=== PATIENT | female | born 1990 | race Caucasian/White ===

== ENCOUNTER 2016-12-27 19:27 | Inpatient (IN) ==
[2016-12-27] MEDS ORDERED: AMMONIA AROMATIC ONE (19:52)
[2016-12-27 20:30] LABS: MANUAL DIFF NEEDED? NO; URINE MICRO REVIEW NEEDED? NO; URINE SOURCE CLEAN CATCH
--- NOTE | 2016-12-27 20:31 | Diag Imaging Result Doc PS360 ---
EXAM: HEAD W/O CONTRAST HISTORY: AMS, hx of pseudoseizures TECHNIQUE: CT of the head without intravenous contrast and reduced dose (clarity.) COMMENT: There is no evidence of bleed, mass effect, or abnormal extra-axial fluid collection. Compared to the previous study of 03/19/2016 there is been no significant change in the appearance of the brain. IMPRESSION: No evidence of acute intracranial disease. Electronically signed by Shiv Mart 12/27/2016 8:29 PM
[2016-12-27 20:35] LABS: BASO% 0.4 % (0.0-0.8); EOS# 0.07 X1000 (0.0-0.7); EOS% 0.7 % (0.0-10.0); HEMATOCRIT 36.3 % (37.0-47.0); HEMOGLOBIN 12.1 g/dL (12.0-16.0); IMM GRAN# 0.16 X1000 (0.0-0.04); IMM GRAN% 1.5 % (0.0-0.5); LYMPH# 2.61 X1000 (1.2-3.4); LYMPH% 24.8 % (20.5-51.1); MCHC 33.3 g/dL (33-37); MCV 89.9 FL (81-99); MONO# 1.03 X1000 (0.11-0.59); MONO% 9.8 % (1.7-9.3); MPV 9.6 FL (7.4-10.4); NEUT% 62.8 % (42.2-75.2); PLT 256 X1000 (130-400); RBC 4.04 XMIL (4.2-5.4)
[2016-12-27 20:37] LABS: BILIRUBIN URINE NEGATIVE (NEGATIVE); BLOOD URINE NEGATIVE (NEGATIVE); COLOR YELLOW; GLUCOSE URINE TRACE mg/dL (NEGATIVE); LEUKOCYTES URINE TRACE (NEGATIVE); NITRITE URINE NEGATIVE (NEGATIVE); PROTEIN URINE NEGATIVE (NEGATIVE); SP GRAVITY URINE 1.021; TURBIDITY URINE CLEAR (CLEAR); UR EPITHELIAL CELLS <10 /HPF (<10); URINE BACTERIA 1+ /HPF; URINE CULTURE NEEDED? YES; URINE RBC <10 /HPF (<10); URINE WBC <10 /HPF (<10); UROBILINOGEN URINE NORMAL (NORMAL)
[2016-12-27 20:46] LABS: UR AMPHETAMINES QUAL NONE DETECTED (NONE DETECT); UR BARBITUATES QUAL NONE DETECTED (NONE DETECT); UR BENZODIAZEPIN QUAL NONE DETECTED (NONE DETECT); UR CANNABINOIDS QUAL NONE DETECTED (NONE DETECT); UR COCAINE QUAL NONE DETECTED (NONE DETECT); UR METHADONE QUAL NONE DETECTED (NONE DETECT); UR OPIATES QUAL NONE DETECTED (NONE DETECT); UR OXYCODONE QUAL NONE DETECTED (NONE DETECT); UR PCP QUAL NONE DETECTED (NONE DETECT)
[2016-12-27 21:12] LABS: AGAP 14; ALKALINE PHOSPHATASE 102 U/L (32-104); BUN 17 mg/dL (8-22); CALCIUM 8.9 mg/dL (8.8-10.2); CHLORIDE 99 mmol/L (98-107); COSMO 276; GOT 15 U/L (10-30); GPT 16 U/L (10-36); POTASSIUM 3.6 mmol/L (3.5-5.1); SODIUM 138 mmol/L (136-145); TCO2 25 mmol/L (25-35); TOTAL BILIRUBIN 0.11 mg/dL (0.20-1.00); TOTAL PROTEIN 7.4 g/dL (6.3-8.3)
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
[2016-12-28] MEDS ORDERED: NS 1,000 ML IV ONE (00:28)
[2016-12-28] MEDS ORDERED: NS 1,000 ML ONE (00:42)
[2016-12-28] MEDS: DEPAKOTE PO SCH ×3 (01:16→22:20)
--- NOTE | 2016-12-28 06:42 | HISTORY AND PHYSICAL ---
CHIEF COMPLAINT: Syncope, dizziness. HISTORY OF PRESENT ILLNESS: This is a 26-year-old female with multiple medical problems for her young age including dysautonomia, diabetes, hypothyroidism. She comes in with recurrent dizziness. According to her /significant other, she has been having frequent episodes of just dizziness and nearly passing out. Reportedly, has been unresponsive. No seizure activity, although she has a history of seizures for which she takes Depakote. She has noticed that the symptoms have been worse since she has been placed on trazodone and Zyprexa for her severe depression. I think she lost a family member. She was at [facility] and then was sent to [place] for inpatient psychiatric treatment and at that point, she had been on Effexor and Depakote, which again is reportedly for seizures and she has been placed on trazodone and Zyprexa, although I do not have the doses. Her fiance reports that she gets completely unresponsive. Again, no seizure activity, but she has episodes were she is unresponsive for 5-10 minutes. She has never fallen out, like fallen face down, but she has had issues with that. That is why she has been put in the hospital. Her workup here really is unremarkable, vital signs and laboratory data. She is a little tachycardic, really not that impressive. Depakote level is therapeutic. PAST MEDICAL HISTORY: 1. Again hypertension, also with orthostasis though. 2. Seizure disorder. 3. Hypothyroidism. 4. Diabetes for which she has recently been placed on metformin. PAST SURGICAL HISTORY: Denies. FAMILY HISTORY: Reviewed and noncontributory. SOCIAL HISTORY: No tobacco or ethanol. ALLERGIES: IV contrast, labetalol. She has numerous allergies. Nadolol, pertussis vaccine, prochlorperazine, amoxicillin, cyclobenzaprine, phenytoin, hydrocortisone, latex and sulfa. MEDICATIONS: She is on vitamin D3 1000 units daily, Depakote 500 b.i.d., Synthroid 150 daily, Glucophage 100 b.i.d. ,Effexor 75 daily and then trazodone and Zyprexa at unknown dose. REVIEW OF SYSTEMS: She does report weight loss and anorexia. Pulmonary: No chest pains or shortness of breath. Occasional palpitations. No cough. GI: Nausea. No vomiting, diarrhea or constipation. : No dysuria or hematuria. PHYSICAL EXAMINATION: VITAL SIGNS: Blood pressure is 122/80, heart rate 100, respiratory 19, temp 98.7 degrees, 95% on room air. GENERAL: A well-developed female, in no acute distress. HEENT: Pupils equal, round, reactive to light. Extraocular movements were intact. Moist mucous membranes. NECK: Supple. CARDIOVASCULAR: Regular rate and rhythm. No murmurs, gallops, or rubs. PULMONARY: Exam bilateral breath sounds. Clear to auscultation. GI: Soft, nontender, nondistended. Bowel sounds were positive. EXTREMITIES: No clubbing or cyanosis. LYMPHATICS: No peripheral edema. NEUROLOGICAL: Nonfocal. LABORATORY/DIAGNOSTIC DATA: Normal CBC. Normal CMP. UA unremarkable. UDS unremarkable. Head CT was negative. I do not have an EKG. It was done. I cannot tell if it was completed. ASSESSMENT: A 26-year-old female with presyncope, likely related to medications. 1. Presyncope, dizziness. We will continue hydration. Check orthostasis. Certainly could be related to trazodone especially. She reports pseudoseizure activity but no candy seizure activity. Plan is to observe and see how she is doing. I am going to hold obviously the trazodone and Zyprexa. Those medications have not been resolved. 2. Diabetes. Again, apparently sugars remain 90-120. No sugars here have been elevated. I am going to check an A1c. Hold her metformin and follow. 3. Seizure disorder. Continue Depakote. Appears to be therapeutic. We will continue to monitor. 4. Disposition. Likely home within next 24 hours if stable. I probably will go ahead and pursue echo just to make sure that there has not been anything else and repeat her cardiac enzymes. cc: Shen Cox MD
[2016-12-28 07:08] LABS: HEMOGLOBIN A1C 5.4 % (4.8-6.0)
[2016-12-28] MEDS: ATIVAN IV PRN ×3 (08:37→22:00)
[2016-12-28] MEDS ORDERED: DEPAKOTE PO SCH (09:00)
[2016-12-28] MEDS ORDERED: SYNTHROID PO SCH (09:00)
[2016-12-28] MEDS: EFFEXOR PO SCH (10:49)
[2016-12-28] MEDS: VITAMIN D PO SCH (10:49)
[2016-12-28] MEDS: HUMULIN R SUBQ SCH ×3 (11:39→22:07)
[2016-12-28] MEDS: NS 1,000 ML IV SCH (11:57)
[2016-12-28 13:01] LABS: URINE CULTURE NEEDED? NO; URINE MICRO REVIEW NEEDED? NO; URINE SOURCE CATH
[2016-12-28 13:06] LABS: BILIRUBIN URINE NEGATIVE (NEGATIVE); BLOOD URINE NEGATIVE (NEGATIVE); COLOR STRAW; GLUCOSE URINE NEGATIVE (NEGATIVE); LEUKOCYTES URINE NEGATIVE (NEGATIVE); NITRITE URINE NEGATIVE (NEGATIVE); PH URINE 7.5; PROTEIN URINE NEGATIVE (NEGATIVE); SP GRAVITY URINE 1.006; TURBIDITY URINE CLEAR (CLEAR); UROBILINOGEN URINE NORMAL (NORMAL)
[2016-12-28 13:07] LABS: UR EPITHELIAL CELLS <10 /HPF (<10); URINE BACTERIA NEGATIVE /HPF; URINE RBC <10 /HPF (<10); URINE WBC <10 /HPF (<10)
--- NOTE | 2016-12-28 13:41 | ECHO REPORT ---
ORDER DATE: 12/28/2016 ECHOCARDIOGRAPHIC MEASUREMENTS: 1. Interventricular septum 1.0. Left ventricular posterior wall 0.9. Diastolic diameter 3.1. Left atrium 3.5. Aorta 2.6. 2. Normal left ventricular cavity size. Estimated ejection fraction of 65%. Aortic valve leaflets were trileaflet. Mitral valve was normal. Tricuspid valve was normal. Pulmonic valve was normal. There is trace mitral regurgitation. Trace tricuspid regurgitation. Peak velocity across the aortic valve less than 2 m/sec. By Doppler studies there is no aortic stenosis or regurgitation. 3. Technically suboptimal study. Poor apical windows. 4. There is no pericardial effusion or obvious intracardiac mass or thrombus seen. cc: MD Shen Saucedo MD
--- NOTE | 2016-12-28 14:17 | PROGRESS NOTE ---
DATE: 12/28/2016 SUBJECTIVE: This patient states that she is feeling a little bit better but weak. She is not complaining of nausea, vomiting. In the hospital she has not had any kind of seizure disorder, or pseudoseizure. She has a strong past medical history of depression, anxiety, PTSD, also history of seizure disorder, diabetes, hypothyroidism and dysautonomy. Apparently she blacked out multiple times yesterday so they decided to bring this patient here. On my physical exam, she has right lower quadrant pain. We will ask for a CT scan of the abdomen to rule out appendicitis. OBJECTIVE: Vital Signs: Temperature 97.7 degrees, pulse 77, respiratory rate 17, blood pressure 114/68, oxygen saturation 98 on room air. HEENT: Head normocephalic. No trauma. PERRLA. Neck: Supple. No JVD. No masses. Central trachea. Chest: Clear to auscultation. No wheezing. No rales. Abdomen: Soft, tender to palpation at the level of the right lower quadrant, probably she has rebound. Extremities: No edema. No clubbing. No cyanosis. Neurological: The patient is alert, oriented x3. No focal neurological deficits. LABORATORY: Glucose 87, hemoglobin A1c 5.4. CK 71, troponin less than 0.010. ASSESSMENT AND PLAN: 1. Syncopal episode in a patient with history of seizures and multiple psychiatry disorders. She has been taking medicines for PTSD, depression and anxiety. The trazodone and Zyprexa has been stopped. We will continue to monitor. 2. Abdominal pain. I will ask for a CT scan of the abdomen to rule out appendicitis and put this patient NPO and also fluids. 3. Diabetes. Hemoglobin A1c is. 5.4. For now, we will continue with the same management. As per the patient every time that she had the blood sugar below 110 she feels bad and she starts having seizures. Probably I will keep this patient to rule out any other condition and for Neurology evaluation. Overall, this patient looks stable but she is complaining of right lower quadrant pain. I will get a CT scan to rule out appendicitis and probably I will keep this patient until Friday to see if we can consult Neurology Department. Probably she will need an EEG done. cc: Juan Cortez MD
--- NOTE | 2016-12-28 14:52 | Diag Imaging Result Doc PS360 ---
EXAM: CT ABD/PELVIS W/ IV CONT ONLY HISTORY: R/O appendicitis TECHNIQUE: CT of the abdomen with intravenous contrast and dose reduction (clarity.) COMMENT: There is subsegmental atelectasis in the lung bases particularly the left lower lobe. There is been cholecystectomy. Some prominence of the biliary tree is present. There is no definite evidence of stones. The pancreas adrenal glands and spleen are within normal limits. The kidneys are without evidence of hydronephrosis or mass. CT of the pelvis with intravenous Contrast: The appendix is normal in appearance. There is some stool in the rectum. There is a Wolf catheter in the bladder. There are bilateral subcentimeter ovarian follicles. No free fluid is present. The regional skeleton is intact. There is no evidence of bowel obstruction. Moderate amount of stool is present in the rectosigmoid colon. IMPRESSION: Constipation. No evidence of appendicitis. Electronically signed by Shiv Mart 12/28/2016 2:49 PM
[2016-12-28] MEDS: MORPHINE IV PRN ×2 (15:28→20:44)
[2016-12-28] MEDS: KEPPRA 1,000 MG in NS 100 ML IV SCH (18:19)
[2016-12-29] MEDS: NS 1,000 ML IV SCH ×2 (01:00→16:49)
[2016-12-29] MEDS: ATIVAN PO SCH ×3 (05:28→22:07)
[2016-12-29] MEDS: MORPHINE IV PRN ×2 (05:29→20:30)
[2016-12-29] MEDS: KEPPRA 1,000 MG in NS 100 ML IV SCH ×2 (05:29→18:22)
[2016-12-29 05:42] LABS: MANUAL DIFF NEEDED? NO
[2016-12-29 05:58] LABS: BASO% 0.3 % (0.0-0.8); EOS# 0.07 X1000 (0.0-0.7); EOS% 0.7 % (0.0-10.0); HEMATOCRIT 36.3 % (37.0-47.0); HEMOGLOBIN 11.9 g/dL (12.0-16.0); IMM GRAN# 0.13 X1000 (0.0-0.04); IMM GRAN% 1.2 % (0.0-0.5); LYMPH# 2.49 X1000 (1.2-3.4); LYMPH% 23.2 % (20.5-51.1); MCH 30.1 PG (27-31); MCHC 32.8 g/dL (33-37); MCV 91.7 FL (81-99); MONO# 1.07 X1000 (0.11-0.59); MPV 9.7 FL (7.4-10.4); NEUT% 64.6 % (42.2-75.2); PLT 240 X1000 (130-400); RBC 3.96 XMIL (4.2-5.4)
[2016-12-29] MEDS: HUMULIN R SUBQ SCH ×3 (06:00→16:33)
[2016-12-29 06:05] LABS: AGAP 10; BUN 15 mg/dL (8-22); CALCIUM 8.3 mg/dL (8.8-10.2); CHLORIDE 102 mmol/L (98-107); COSMO 275; SODIUM 138 mmol/L (136-145); TCO2 26 mmol/L (25-35)
[2016-12-29] MEDS: DEPAKOTE PO SCH ×2 (08:43→22:07)
[2016-12-29] MEDS: EFFEXOR PO SCH (08:43)
[2016-12-29] MEDS: VITAMIN D PO SCH (08:43)
[2016-12-29] MEDS: SYNTHROID PO SCH (09:27)
--- NOTE | 2016-12-29 10:42 | PROGRESS NOTE ---
DATE: 12/29/2016 SUBJECTIVE: This patient stated that she is feeling weak. She is alert and oriented x3. She is still complaining of right lower quadrant abdominal pain. We did a CT scan yesterday that did show any abnormality. No appendicitis. I was called in the afternoon by the nurse taking care of her on the floor. She states that this patient was having a seizure. I went ahead and I put this patient on Keppra IV twice a day. I transferred this patient to the [facility] for be able to monitor this patient better. After that, no more seizures reported. I asked for an EEG. Today, I placed a consult for neurology. OBJECTIVE: Vital Signs: Temperature 98.7 degrees, pulse 86, respiratory rate 16, blood pressure 111/61, oxygen saturation 97% on room air. HEENT: Head normocephalic. No trauma. PERRLA. Neck: Supple. No JVD. No masses. Central trachea. Chest: Clear to auscultation. No wheezing or rales. Abdomen: Soft, tender to palpation at the level of the right flank and right lower quadrant. Today, she does not have signs of peritoneal irritation. Extremities: No edema. No clubbing. No cyanosis. Neurological Examination: The patient is sleepy but arousable. Alert and oriented x3. No focal neurological deficits. Laboratory: WBC 10, hemoglobin 11.9, hematocrit 36.3, platelets 240,000. Sodium 138, potassium 4, chloride 102, bicarbonate 26, BUN 15, creatinine 0.9, glucose 75, calcium 8.3. ASSESSMENT AND PLAN: 1. Seizure disorder. I already asked for an EEG and also neurology department has been consulted. I started this patient on Keppra twice a day. She had an episode of seizure yesterday and she was transferred to the [facility] unit to be able to monitor this patient closely. Also, she has multiple history of multiple psychiatric histories including PTSD, depression, and anxiety. Trazodone and Zyprexa have been stopped since the day of admission. We will continue to monitor. 2. Abdominal pain. I asked for a CT scan yesterday to rule out appendicitis and this was negative. It showed constipation. I will start MiraLAX. 3. Constipation. I will start MiraLAX on this patient. We will monitor. 4. Diabetes. Hemoglobin A1c is 5.4. For now, we will continue with the same management. Blood sugar is stable. I will start this patient on a liquid diet today since she is not having seizures. CRITICAL CARE TIME: 35 minutes. cc: Juan Cortez MD
[2016-12-29] MEDS: ATIVAN IV PRN (19:02)
[2016-12-29] MEDS: MIRALAX PO SCH ×2 (19:42→22:18)
--- NOTE | 2016-12-29 21:17 | CONSULTATION ---
DATE OF CONSULTATION: 12/29/2016 HISTORY OF PRESENT ILLNESS: Ms. Bell was admitted a few days ago with history of episodes, possible seizure versus non seizure etiology. History from the patient is that she began having spells at age 13. She reports workup showed "lesion on the left frontal area" of the brain. She was started on topiramate then and reports the lesion "disappeared" without other management. Later, she switched from topiramate to levetiracetam and she does not recall why that change was made. She took another medicine that may have been associated with psychosis. She took Vimpat briefly. She recalls IV phenytoin was associated with burning sensation. She was switched to divalproex in recent years and tolerated that. She reports extensive workup at [facility] several months ago and she was discharged with instructions to stop divalproex and she did not have any seizure medication for a few months. She then resumed divalproex a few months ago. She reports episodes begin with a sense of lightheadedness and double vision followed by trembling in the left hand and then collapse. She does not report significant postictal state. She reports urinary incontinence has happened on several occasions. She has bitten her tongue a few times but not to the point of bleeding. She has never had serious injury associated with these episodes. There has never been clear focal neurologic feature to the postictal state but she consistently reports noticing trembling in the left hand prior to collapse. She reports episodes occur mostly at times of stress. She had as many of 30 episodes in a day during the month of October and she attributes that to her father's that month. Most recent neurology evaluation, by her report to me today, was in [place], followed by Dr. Saldaña. She reports unable to follow up with Dr. Saldaña now because she has run out of her Medicaid eligible visits. Workup here includes noncontrast CT of the head reported unremarkable 2016. Lab work showed mild anemia, nothing remarkable on chemistry profile, urine drug screen all negative, valproic acid level 76.5. She has been afebrile. Heart rate has been recorded mid 70s up to 100. Systolic blood pressures have ranged 97 to 103 in the last 24 hours, 120s to 150s first several hours after admission. PHYSICAL EXAM: On exam, she is awake, alert, attentive. Speech is not dysarthric. Language function is intact. Memory seems good. Head and neck are unremarkable. Visual emerson are full tested by confrontational finger counting. Extraocular movements are full. Facial motility is symmetric. Gag is intact. Tongue is midline. She can hear. Shoulder shrug is equal. Strength is normal in the right limbs. She has some inconsistent findings in motor testing in the left limbs but no reproducible definite objective motor deficit identified. Tone is equal in the limbs. She did well on lctteh-cg-goru testing bilaterally. Sensation is intact on gross testing. Proprioception is good at the great toe MTP joint bilaterally. I did not test her gait. Reflexes are 2+ at the wrists and 2+ at the ankles symmetrically. Plantar response is silent bilaterally. IMPRESSION: History of spells with features more consistent with nonepileptic etiology. I believe that is consistent with what it was determined at [facility] based on her report that she was discharged without medicine to control seizures. She gives clear history that episodes tend to occur at times of stress. I do not have any urgent suggestion here. I do not know if there is possibility of psychiatry evaluation and that may have been done in the past. We discussed the [place] laws pertaining to driving and she understands her responsibility. I encouraged her to take her medicines as prescribed and to reestablish followup with Dr. Saldaña when that is possible. Regarding her current management here, I do not think episodes are seizures but it would be reasonable to continue levetiracetam short-term until she can follow up with Dr. Saldaña and she can continue divalproex short-term. I discussed concerns with divalproex including liver and bone marrow toxicity, masculinization, weight gain, tremor with her. Thanks for asking me to see Ms. Bell. cc: Jamal Stack III, MD [facility]
[2016-12-30] MEDS: NS 1,000 ML IV SCH (04:13)
[2016-12-30] MEDS: ATIVAN IV PRN ×2 (04:14→22:12)
[2016-12-30 04:36] LABS: MANUAL DIFF NEEDED? NO
[2016-12-30 04:41] LABS: BASO% 0.2 % (0.0-0.8); EOS# 0.07 X1000 (0.0-0.7); EOS% 0.8 % (0.0-10.0); HEMATOCRIT 34.4 % (37.0-47.0); HEMOGLOBIN 11.5 g/dL (12.0-16.0); IMM GRAN# 0.11 X1000 (0.0-0.04); IMM GRAN% 1.3 % (0.0-0.5); LYMPH# 2.41 X1000 (1.2-3.4); LYMPH% 29.2 % (20.5-51.1); MCH 30.1 PG (27-31); MCHC 33.4 g/dL (33-37); MCV 90.1 FL (81-99); MONO# 1.04 X1000 (0.11-0.59); MONO% 12.6 % (1.7-9.3); MPV 9.2 FL (7.4-10.4); NEUT% 55.9 % (42.2-75.2); PLT 242 X1000 (130-400); RBC 3.82 XMIL (4.2-5.4)
[2016-12-30 05:30] LABS: AGAP 12; BUN 13 mg/dL (8-22); CALCIUM 8.5 mg/dL (8.8-10.2); CHLORIDE 103 mmol/L (98-107); COSMO 280; SODIUM 141 mmol/L (136-145); TCO2 26 mmol/L (25-35)
[2016-12-30] MEDS: HUMULIN R SUBQ SCH ×5 (05:49→20:56)
[2016-12-30] MEDS: KEPPRA 1,000 MG in NS 100 ML IV SCH ×2 (06:07→18:28)
[2016-12-30] MEDS: MORPHINE IV PRN ×3 (06:07→21:07)
--- NOTE | 2016-12-30 06:15 | EKG Report ---
Test Performed on : 12/27/2016 7:27:25 PM Test Reason : DIZZY Blood Pressure : / mmHG Vent. Rate : 103 BPM Atrial Rate : 103 BPM P-R Int : 136 ms QRS Dur : 078 ms QT Int : 344 ms P-R-T Axes : 000 176 168 degrees QTc Int : 450 ms Sinus tachycardia. Right axis deviation T wave abnormality, consider inferior ischemia Abnormal ECG When compared with ECG of 25-NOV-2013 15:55, QRS axis shifted right T wave inversion now evident in Inferior leads T wave inversion now evident in Lateral leads Unconfirmed Result
[2016-12-30] MEDS: DEPAKOTE PO SCH ×2 (08:15→20:56)
[2016-12-30] MEDS: VITAMIN D PO SCH (08:15)
[2016-12-30] MEDS: ATIVAN PO SCH ×2 (08:15→20:56)
[2016-12-30] MEDS: EFFEXOR PO SCH (08:15)
[2016-12-30] MEDS: SYNTHROID PO SCH (08:15)
[2016-12-30] MEDS: MIRALAX PO SCH ×2 (08:16→20:57)
--- NOTE | 2016-12-30 11:24 | PROGRESS NOTE ---
DATE: 12/30/2016 Ms. Bell reports she had a few more episodes since I saw her yesterday, 1 overnight and 1 this morning. She reports features were similar to previous spells. She reports headache now and no other current complaint. I reviewed my impression with her that recent episodes are likely not epileptic seizures. I think it would be reasonable to continue current seizure medicine regimen until she can follow up with Dr. Saldaña for more definitive and long-term management recommendations. I do not have any other suggestion from neurologic standpoint right now. Thanks for asking me to see Ms. Bell. cc: Jamal Stack III, MD [facility]
[2016-12-30] MEDS: D10W 1,000 ML IV SCH (12:02)
--- NOTE | 2016-12-30 14:02 | PROGRESS NOTE ---
DATE: 12/30/2016 SUBJECTIVE: This patient is still complaining of right lower quadrant pain. She is still passing gas and she had a small bowel movement yesterday. She states that the pain gets worse when she eats and she has been on a clear liquid diet. I did twice a urinalysis that has been negative, and also I did a CT scan to rule out appendicitis but is still having this kind of pain. I have consulted the surgery department today for evaluation. Neurology department evaluated this patient. They did not remove or add any medications. We are waiting for an EEG to be done hopefully today. They will continue to monitor this patient. OBJECTIVE: Vital Signs: Temperature 98 degrees, pulse 101, respiratory rate 20, blood pressure 107/68, O2 saturation 97% on room air. HEENT: Head normocephalic. No trauma. PERRLA. Neck: Supple. No JVD. No masses. Central trachea. Chest: Clear to auscultation. No wheezing. No rales. Abdomen: Soft with tenderness to palpation at the level of the right lower quadrant, questionable rebound. Positive bowel sounds. Extremities: No edema. No clubbing. No cyanosis. Neurological: The patient is alert and oriented x3. No focal deficits. LABORATORY: WBC is 8.2, hemoglobin 11.5, hematocrit 34.4, platelets 242,000. Sodium 141, potassium 4, chloride 103, bicarbonate 26, BUN 13, creatinine 0.7, glucose 80, calcium 8.5. ASSESSMENT AND PLAN: 1. Seizure disorder. Pending EEG, Neurology department is on board. We will continue with the same management for now. 2. Right lower quadrant pain. CT scan done a couple of couple days ago did not show any abnormality, but she is still having pain. Urinalysis has been negative. I will consult with the surgery department to evaluate this patient. 3. Constipation. I will continue with the same management. She is on MiraLAX. 4. Diabetes. Hemoglobin A1c is 5.4. For now, we will continue with the same treatment. The blood sugar is low. I will start this patient with Walker. With IV fluids, D10, for now. CRITICAL CARE TIME: 35 minutes. cc: Jaun Cortez MD
--- NOTE | 2016-12-30 18:27 | CONSULTATION ---
DATE OF CONSULTATION: 12/30/2016 HISTORY OF PRESENT ILLNESS: Ms. Amy Bell is a 26-year-old white female who was admitted for syncope and problems with treatment of seizure disorder. She has been hospitalized since Friday. Her medications are being adjusted and our neurologist, Dr. Stack, has evaluated her. During her hospitalization she has been experiencing some right-sided abdominal pain. An abdominal and pelvic CT scan was done on 12/28/2016 and showed no evidence of appendicitis. Her white blood cell count has been normal and she has been afebrile. She states she has had pain like this about twice a year. PAST MEDICAL HISTORY: Cholecystectomy, hypothyroidism and she has been diagnosed with diabetes. FAMILY HISTORY: Noncontributory. SOCIAL HISTORY: She does not smoke. She had her boyfriend at the bedside. ALLERGIES: She has multiple allergies as listed by her previous history and physical. MEDICATIONS: She is on multiple anti-seizure medications including Depakote, trazodone. She is also on Effexor, Synthroid, Glucophage, vitamin D3. REVIEW OF SYSTEMS: A 14-point review of systems was performed and was essentially the same as her history of present illness. PHYSICAL EXAMINATION: General: Ms. Bell appears to be in no acute distress. She does not appear to feel ill. She does not look ill. She had no jaundice, no oral lesions, no cervical or supraclavicular lymphadenopathy. Heart: Regular rate. Lungs: Clear to auscultation and percussion bilaterally. Abdomen: Soft. She is tender in the right lower quadrant. There is no palpable mass. There is no costovertebral tenderness. Rectal/Vaginal: Examinations were not performed. Extremities: She does have palpable peripheral pulses. No peripheral edema. Neurological: She is alert and oriented x3 and appropriate. IMAGING STUDIES: CT scan on 12/28/2016 suggested no evidence of appendicitis. She has been afebrile throughout her hospitalization. She is not tachycardic with heart rate of 79-89. LABORATORY: Her white blood cell count is 8.26 and it has been normal. PLAN: She is hungry and we will feed her. We will follow her clinically for any fever or increasing right lower quadrant pain. cc: Jocelyn Corona MD
[2016-12-30] MEDS: DESYREL PO PRN (21:08)
[2016-12-31] MEDS: MORPHINE IV PRN ×5 (00:52→23:15)
[2016-12-31] MEDS: D10W 1,000 ML IV SCH ×2 (00:53→14:50)
[2016-12-31] MEDS: ZOFRAN IV PRN ×5 (01:32→23:15)
[2016-12-31 05:21] LABS: MANUAL DIFF NEEDED? NO
[2016-12-31 05:31] LABS: BASO% 0.4 % (0.0-0.8); EOS# 0.05 X1000 (0.0-0.7); EOS% 0.6 % (0.0-10.0); HEMATOCRIT 35.9 % (37.0-47.0); IMM GRAN# 0.12 X1000 (0.0-0.04); IMM GRAN% 1.5 % (0.0-0.5); LYMPH# 2.62 X1000 (1.2-3.4); LYMPH% 33.1 % (20.5-51.1); MCH 29.9 PG (27-31); MCHC 33.4 g/dL (33-37); MCV 89.5 FL (81-99); MONO# 1.06 X1000 (0.11-0.59); MONO% 13.4 % (1.7-9.3); MPV 9.3 FL (7.4-10.4); PLT 243 X1000 (130-400); RBC 4.01 XMIL (4.2-5.4)
[2016-12-31] MEDS: KEPPRA 1,000 MG in NS 100 ML IV SCH ×2 (05:41→17:02)
[2016-12-31 06:19] LABS: AGAP 12; BUN 14 mg/dL (8-22); CALCIUM 8.6 mg/dL (8.8-10.2); CHLORIDE 101 mmol/L (98-107); COSMO 279; POTASSIUM 3.7 mmol/L (3.5-5.1); SODIUM 138 mmol/L (136-145); TCO2 25 mmol/L (25-35)
[2016-12-31] MEDS: HUMULIN R SUBQ SCH ×4 (06:41→21:10)
--- NOTE | 2016-12-31 08:58 | PROGRESS NOTE ---
DATE: 12/31/2016 SUBJECTIVE: A 26-year-old with multiple medical problems at her young age, including dysautonomia, diabetes, and hypothyroidism. She came with recurrent dizziness. According to her /significant other, she had been having frequent episodes of dizziness and nearly passing out. Reports she had been unresponsive. No seizure activity, although she has a history of seizures for which she takes Depakote. She has noticed that the symptoms have been worse since she has been placed on trazodone and Zyprexa for her severe depression. I think she lost a family member. She was at [facility] and then was sent to for inpatient psychiatric treatment. At that point, she had been on Effexor and Depakote and then was placed on trazodone and Zyprexa. Her fiance reports she gets completely unresponsive. Again, no seizure activity but she has episodes where she is unresponsive for 5-10 minutes. She has never fallen out, likely fallen face down, but he reports that she has had seizures like that before which is why she has been put in the hospital. Her workup was unremarkable in the emergency room. PAST MEDICAL HISTORY: 1. Hypertension, also with some orthostasis. 2. Dysautonomia. 3. Seizure disorder. 4. Hypothyroidism. 5. Diabetes. She was recently placed on metformin and no surgical history. So admitted with presyncope and dizziness and felt a little bit of dehydration. She states she is feeling better and I think they held the trazodone. There have been reports in the past of pseudoseizure activity. She feels better this morning. She is awake and alert, oriented x3. IMAGIN. Echocardiogram that was done on 12/28/2016, normal. Left ventricular size ejection fraction normal. Tricuspid valve normal. 2. She had an abdominal and pelvic CT done on 12/28/2016 for constipation. No evidence of appendicitis. Dr. Corona saw her yesterday. She has abdominal pain. She points to the right side. She had an abdominal and pelvic CT on 01/06/2017 and showed no evidence of appendicitis. PAST SURGICAL HISTORY: 1. She has had a cholecystectomy. 2. History of hypothyroidism. White count was 8260 and has remained normal, so we are feeding her. She says that she is eating a little bit. Her tummy still gives her quite a bit of discomfort. Dr. Jamal Stack has seen her. She has a history of spells of features most consistent with nonepileptic in etiology, and I think this was determined that the [facility]. Discharged without medicine to control seizures at that time. PHYSICAL EXAM: General: Today, she is awake and alert. Vital signs: Temperature 97.4 degrees, pulse 70, respirations 13, blood pressure 90/62. HEENT: Pupils are equal, round, CVP less than 6 cm. Lungs: Clear in all lung emerson. Cardiovascular: Regular rhythm and rate without murmur or S3. Urine output is a little over 4 L. LABORATORY: White count 7920, hematocrit 35, platelet count 243,000, sodium 138, potassium 3.7, chloride 101, bicarb 25, BUN 14, creatinine 0.9, blood sugar 134, 158, 169. ASSESSMENT AND PLAN: 1. Seizure disorder. Pending EEG. Past reports of workup have indicated this is probably not epileptic in etiology. Continue her present management medications. She is on Effexor 75 mg a day. She is on trazodone 150 mg p.o. at bedtime. She is on Keppra 1000 mg q.12 hours, IV Depakote 500 mg b.i.d. 2. Right lower quadrant pain. CT unremarkable, evaluated by Dr. Corona. Urinalysis negative. 3. Constipation. She states she really does not want anything new for it. She is on the MiraLAX. 4. Diabetes mellitus type 2. A1c was 5.4, her sugars have remained pretty low recently and blood sugars 134, 158 169. We need to ambulate and see how we do eating. I will discuss with Dr. Hassan and make a decision on whether we need to stay on the Keppra. Her thyroid appears to be euthyroid. cc: Meet Field MD
[2016-12-31] MEDS: DEPAKOTE PO SCH ×2 (09:01→21:10)
[2016-12-31] MEDS: MIRALAX PO SCH ×2 (09:01→21:11)
[2016-12-31] MEDS: EFFEXOR PO SCH (09:01)
[2016-12-31] MEDS: SYNTHROID PO SCH (09:01)
[2016-12-31] MEDS: ATIVAN PO SCH ×2 (09:01→21:10)
[2016-12-31] MEDS: VITAMIN D PO SCH (09:01)
--- NOTE | 2016-12-31 09:44 | PROGRESS NOTE ---
DATE: 12/31/2016 SUBJECTIVE: Ms. Amy Bell is a 26-year-old white female, who was admitted because of seizures and syncope. Since her admission, she has complained of some lower abdominal pain. It seems to be localizing to the right lower quadrant. We were asked to evaluate her because of this abdominal pain. A CT scan of her abdomen and pelvis was essentially normal several days ago. She has remained afebrile and her white blood cell count is normal, but she still complains of lower abdominal pain. She did have diarrhea. Over the last 24 hours she has been able to tolerate a diet, although her appetite is not all that normal. This morning she is afebrile with a white blood cell count of 8, hematocrit is 36%. Her electrolytes are within normal limits. PLAN: Despite some abdominal discomfort, we do not feel that she has acute appendicitis clinically. I would encourage increase in her activity. She still has a Wolf catheter in place I think at her request. Her medicines are being adjusted because of her seizures. cc: Jocelyn Corona MD
--- NOTE | 2016-12-31 12:23 | EEG REPORT ---
DATE: 12/30/2016 EEG #: [id number] done on 12/30/2016. COMMENT: This is a digitally recorded EEG on a 26-year-old patient with history of episodes and question of seizure versus non epileptic seizure. FINDINGS: During waking, low to medium amplitude 10 Hz, posterior rhythm is present symmetrically and reacts normally to eye opening. There is 15-20 Hz beta rhythm centrally. This occasionally produces 10-12 Hz notched rhythm centrally and posteriorly. There is frontal and central theta at low amplitude during waking. Drowsing occurred briefly. Stage 2 sleep was not recorded. Hyperventilation did not significantly alter the record. Photic stimulation produced minimal symmetric entrainment. No definite epileptiform discharge was identified. INTERPRETATION: Normal EEG. CORRELATION: In the absence of epileptiform discharges on a single EEG, does not exclude a clinical diagnosis of seizures, but there is nothing on this record to establish the presence of a seizure disorder. cc: MD Juan Rodriguez III, MD
--- NOTE | 2016-12-31 12:40 | PROGRESS NOTE ---
DATE: 12/31/2016 Ms. Bell is awake and alert now. Her chief complaint is abdominal pain. Piper Helper at the bedside had some questions about blood sugar and her admission antipsychotic and antidepressant medicines. I told him I would defer blood sugar questions to the primary attending. I would favor holding the other medicines since she appeared improved after those were stopped this admission. Her EEG was normal and showed no evidence of epileptiform discharge or other evidence of seizure. I would continue her current seizure medications until she can follow up with her treating neurologist, Dr. Saldaña in [place]. Thanks for asking me to see Ms. Bell. cc: Jamal Stack III, MD [facility]
[2016-12-31] MEDS: DESYREL PO PRN (21:10)
[2017-01-01] MEDS: D10W 1,000 ML IV SCH ×2 (03:05→17:22)
[2017-01-01] MEDS: ZOFRAN IV PRN ×4 (03:05→21:20)
[2017-01-01] MEDS: MORPHINE IV PRN ×4 (03:05→21:20)
[2017-01-01] MEDS: KEPPRA 1,000 MG in NS 100 ML IV SCH ×2 (05:26→17:22)
[2017-01-01] MEDS: HUMULIN R SUBQ SCH ×4 (06:06→23:43)
--- NOTE | 2017-01-01 06:55 | PROGRESS NOTE ---
DATE: 01/01/2017 SUBJECTIVE: Ms. Bell was waking up. She had a good night, but she complains that she still has right-sided abdominal pain. It feels like it is sharp and stabbing. OBJECTIVE: Vital Signs: She remains afebrile. Temperature 98.1 degrees, pulse 67, respirations 115/72. HEENT: Pupils are equal, round. Neck: CVP less than 6 cm. Lungs: Clear in all lung emerson. Cardiovascular: Regular rhythm and rate, without murmur or S3. Abdomen: Soft. Really no guarding and nontender. Genitourinary: Urine output is 3700 mL. LABORATORY STUDIES: From yesterday, reviewed. White count 7920, hematocrit 35, platelet count 243,000. Blood sugars 114, 112, 198, 90. ASSESSMENT AND PLAN: 1. Admitted because of seizures and syncope. This seems to be doing better. Hemodynamically, appears stable. 2. Complains of lower abdominal pain. Seems to be located in the right quadrant. CT of the abdomen and pelvis essentially normal several days ago. She remains afebrile. White count is normal. Still complains of this abdominal pain. We will get an ultrasound of her abdomen today, and a flat and upright. I do not feel she has acute appendicitis, and exam is not consistent. We will ask GI to look as well. Appreciate Dr. Stack's help. There was some question about her blood sugars, and EEG was normal. Showed no evidence of epileptiform discharge or any evidence of seizure. Continue her current medications. 3. She did have some constipation, which she says is better. 4. Diabetes mellitus. Her sugars appear well-controlled. I will get an ultrasound, a flat and upright, and ask GI to see. cc: Meet Field MD
--- NOTE | 2017-01-01 08:04 | Diag Imaging Result Doc PS360 ---
EXAM: US ABDOMEN-COMPLETE INDICATION: abdominal pain COMPARISON: None. FINDINGS: There has been a previous cholecystectomy. The common bile duct is normal in diameter measuring up to 6 mm. The liver is grossly unremarkable. Portal venous flow is hepatopedal. The visualized pancreas is unremarkable. The aorta and IVC are grossly unremarkable. The spleen is unremarkable. The kidneys are grossly unremarkable. IMPRESSION: Essentially unremarkable abdominal ultrasound. Electronically signed by Fabio Juarez 01/01/2017 8:02 AM
[2017-01-01] MEDS: SYNTHROID PO SCH (08:07)
[2017-01-01] MEDS: DEPAKOTE PO SCH ×2 (08:08→21:06)
[2017-01-01] MEDS: EFFEXOR PO SCH (08:08)
[2017-01-01] MEDS: VITAMIN D PO SCH (08:08)
[2017-01-01] MEDS: ATIVAN PO SCH ×2 (08:08→21:07)
[2017-01-01] MEDS: MIRALAX PO SCH ×2 (08:09→21:07)
--- NOTE | 2017-01-01 08:44 | Diag Imaging Result Doc PS360 ---
EXAM: FLAT/UPRIGHT ABD/1 VIEW CHEST INDICATION: abdominal pain TECHNIQUE: 3 views COMPARISON: Chest radiograph dated 03/19/2016 FINDINGS: There is evidence of prior cholecystectomy. There is somewhat increased stool throughout the colon suggesting possible constipation. There is no obstructive bowel pattern. There is no evidence of large volume free abdominal gas. There is no evidence of organomegaly. The lungs are grossly clear. There is no discrete pleural fluid collection or pneumothorax. The cardiomediastinal silhouette and central vasculature are grossly unremarkable. IMPRESSION: Possible constipation. Electronically signed by Fabio Juarez 01/01/2017 8:41 AM
[2017-01-01] MEDS ORDERED: SODIUM CHLORIDE 0.9% INJ SCH (09:15)
[2017-01-01] MEDS ORDERED: GOLYTELY PO ONE (10:00)
[2017-01-01] MEDS: PEPCID IV SCH ×2 (10:30→21:07)
[2017-01-01] MEDS ORDERED: DULCOLAX PR ONE (11:31)
[2017-01-01] MEDS: PERICOLACE PO SCH (21:07)
[2017-01-02] MEDS: MORPHINE IV PRN ×2 (01:11→05:17)
[2017-01-02] MEDS: ZOFRAN IV PRN ×2 (01:11→05:17)
[2017-01-02] MEDS: KEPPRA 1,000 MG in NS 100 ML IV SCH ×3 (05:16→18:06)
[2017-01-02 05:39] LABS: AMYLASE 51 U/L (20-200); LIPASE 20 U/L (13-60)
[2017-01-02] MEDS: D10W 1,000 ML IV SCH (06:06)
[2017-01-02] MEDS: HUMULIN R SUBQ SCH ×4 (06:06→20:30)
--- NOTE | 2017-01-02 08:27 | PROGRESS NOTE ---
DATE: 01/02/2017 SUBJECTIVE: This is a 26-year-old. She reports that she still has the abdominal discomfort in the right side. It seems to come and go. It sounds like a cramping sharp pain. PHYSICAL EXAMINATION: Vital Signs: Temperature 97.6 degrees, pulse 76, respirations 14, blood pressure 100/74. CVP less than 6 cm. Lungs: Clear in all lung emerson. Cardiovascular Examination: Regular rhythm and rate without murmur or S3. Abdomen: Soft and really nontender. Skin: Is warm and dry. Is and Os: Urine output looks like it was almost 4 L. HEENT: The pupils are equal and round. LAB: Reviewed from the 4th. Blood sugars have been 98, 107, 106. Abdominal ultrasound essentially unremarkable . She has had a previous cholecystectomy. Common bile duct is normal in diameter, measuring 6 mm. Grossly unremarkable. Portal venous flow is hepatopetal. Visualized pancreas is unremarkable. Aorta and IVC are grossly unremarkable. Spleen is unremarkable. Kidneys grossly unremarkable. Abdominal x-ray done yesterday, possible constipation. ASSESSMENT AND PLAN: 1. Right-sided abdominal pain. Suspect constipation, maybe some colon spasm, irritation. Try and see if we can get her cleaned out. See Dr. Ruiz. Appreciate his help. He is going to perform EGD and colonoscopy. 2. Encephalopathy has resolved. 3. Constipation. 4. Diabetes mellitus type 2. Sugars appear almost normal range. 5. We will continue her present medication. The Keppra is at 1000 mg IV q.12 hours. We will switch that I think to p.o. Discuss with Dr. Stack whether we need to continue her antiepileptic medications but I will stop the IV Keppra and switch her to p.o. at 500 mg twice a day. I guess I will wait to do that tomorrow. cc: Meet Field MD
[2017-01-02] MEDS ORDERED: ROBINUL ONE (09:12)
[2017-01-02] MEDS ORDERED: DIPRIVAN 1% ONE ×2 (09:12→09:38)
[2017-01-02] MEDS ORDERED: ZOFRAN ONE (09:12)
[2017-01-02] MEDS ORDERED: XYLOCAINE-MPF 2% ONE (09:12)
[2017-01-02] MEDS ORDERED: FENTANYL ONE (09:13)
--- NOTE | 2017-01-02 09:56 | CONSULTATION ---
DATE OF CONSULTATION: 01/01/2017 REQUESTING PHYSICIAN: Dr. Meet Field. PRIMARY CARE DOCTOR: None. REASON FOR CONSULTATION: Abdominal pain in the right upper quadrant. HISTORY OF PRESENT ILLNESS: Ms. Bell is a 26-year-old female, who was admitted on 12/27/2016 with syncope and dizziness. She has a known history of dysautonomia and diabetes, hypothyroidism causing recurrent dizziness. She also has a history of seizures and takes Depakote. She has a strong family history of colon cancer, stomach cancer in her father who at age 55. She has had a recent EGD and colonoscopy done about 4 years ago which, according the patient, were normal. Before this admission, she was seen at [facility] where she was sent to [place] for inpatient psychiatric treatment and was started on Effexor and Depakote. Trazodone, Zyprexa. She has been having abdominal pain off and on for many months. As a child, she had history of intermittent spells of constipation. The imaging here showed evidence of constipation. She has, so far, been refusing her MiraLAX as it is causing her overflow diarrhea. She denies any blood in the stool recently; all in the past. Three days ago she had noticed some bright blood in the stools which she thought was because of hemorrhoids. She denies any current nausea but, in the past, she has had nausea and vomiting. She had been seen by the surgical team and evaluated by Dr. Corona who decided against any kind of surgical intervention. PAST MEDICAL HISTORY: 1. Hypertension. 2. Seizure disorder. 3. Psychiatric illness, unknown. 4. Hypothyroidism. 5. Diabetes. 6. Constipation. ALLERGIES: Numerous medication allergies. PAST SURGICAL HISTORY: None. FAMILY HISTORY: No history of inflammatory bowel disease. Father history of colon cancer, stomach cancer. The details are obscured, but he at 55 per the patient's report. SOCIAL HISTORY: No history of alcohol and tobacco. She has 1 child, age 55 years old. ALLERGIES: 1. IV contrast. 2. Labetalol. 3. Nadolol. 4. Pertussis vaccine. 5. Prochlorperazine. 6. Amoxicillin. 7. Cyclobenzaprine. 8. Phenytoin. 9. Hydrocortisone. 10. Latex. 11. Sulfa. MEDICATIONS AT HOME: 1. Vitamin D 3 1000 units daily. 2. Depakote 5 mg b.i.d. 3. Synthroid 150 mcg daily. 4. Glucophage 1000 mg b.i.d. 5. Effexor 75 mg a day. 6. Trazodone. 7. Zyprexa. REVIEW OF SYSTEMS: She denied any current fevers, rigors, chills, chest pain, or shortness of breath. Denies any genitourinary symptoms. She does have a history of feeling dizzy at times and seizures being evaluated per Neurology team. She complains of nausea and abdominal pain intermittent and change in bowel habits. She had some blood in the stools a few days ago which was secondary to straining. PHYSICAL EXAMINATION: Vital Signs: Temperature of 98.8 degrees, pulse of 82, respiratory rate 16, blood pressure 108/64, saturating 98% on room air. Body weight 181 pounds 14 ounces. BMI 31 kg/m2 General: She is moderately nourished, lying in bed, in no acute. HEENT : No pallor. No icterus. Pupils equal and reactive to light. Neck: Supple. Chest: Clear. Heart: Regular rhythm. No murmur. Abdomen: Discomfort in the pelvic region. No rebound or guarding. Bowel sounds are hypoactive. Extremities: No cyanosis, clubbing, edema. Neurologic : Alert, awake, oriented. LABORATORY DATA: Hemoglobin and hematocrit is 12 and 35.9, white count of 7.9, platelet count of 243,000. MCV of 89.5. Sodium 130, potassium 3.7, chloride 101, bicarb 25. Anion gap 12. BUN of 14, creatinine 0.9, glucose of 158, calcium 8.6. Ultrasound was essentially normal. It was done on 01/01/2017. It shows CBD normal in diameter up to 6 mm. Liver is grossly unremarkable. Portal venous flow is hepatopetal. The visualized pancreas unremarkable. The spleen is unremarkable. Kidneys unremarkable. There has been prior cholecystectomy. She had a CT of the abdomen and pelvis done on 06/2016 that showed constipation. No evidence of any appendicitis. Stool: Moderate amount present in the rectosigmoid region. Also, it showed the appendix is normal in appearance. Bilateral subcentimeter ovarian follicles were noted. IMPRESSION AND PLAN: 1. Abdominal pain with some rectal bleeding in the setting of constipation with prominent stool in the rectosigmoid region, likely impaction. 2. Nausea, intermittent abdominal pain likely secondary to #1 and maybe because of medication side effects. History of multiple psych medications. 3. Psychiatric Illness. 4. Diabetes, on metformin. 5. Seizure disorder. On anti-seizure medication. 6. High BMI of 31 kg m. 7. Occasional rectal bleeding. Suspect anorectal pathology from constipation. Family history of colon cancer. Father at the age of 55. 8. Mild anemia. RECOMMENDATIONS: We will start the patient on Dulcolax suppository 1 now, and we will continue on MiraLAX twice daily. We will continue on Pepcid b.i.d. We will schedule patient for EGD and colonoscopy tomorrow. The risks, benefits, indications, alternatives discussed with the patient and all questions answered. Will check serum amylase and lipase; Although imaging is normal. The patient was counseled to take a high fiber diet and drink plenty of fluids at home. Further recommendations pending hospital course. cc: MD Jamal Ribeiro III, MD Manish Arora, MD MTDD
[2017-01-02] MEDS ORDERED: D50W SYRINGE ONE (10:20)
[2017-01-02] MEDS ORDERED: ATIVAN ONE ×2 (11:24)
[2017-01-02] MEDS ORDERED: ATIVAN IV ONE (11:30)
[2017-01-02] MEDS ORDERED: LR 500 ML ONE (12:33)
[2017-01-02] MEDS: VITAMIN D PO SCH (14:57)
[2017-01-02] MEDS: CARAFATE PO SCH ×2 (14:57→20:29)
[2017-01-02] MEDS: PEPCID IV SCH ×2 (14:58→20:29)
[2017-01-02] MEDS: ATIVAN PO SCH ×2 (14:58→20:29)
[2017-01-02] MEDS: EFFEXOR PO SCH (14:58)
[2017-01-02] MEDS: SYNTHROID PO SCH (14:58)
[2017-01-02] MEDS: DEPAKOTE PO SCH ×2 (14:58→20:29)
[2017-01-02] MEDS: PERICOLACE PO SCH ×2 (14:58→20:29)
[2017-01-02] MEDS: MIRALAX PO SCH ×2 (14:58→20:30)
--- NOTE | 2017-01-02 15:24 | PROGRESS NOTE ---
DATE: 01/02/2017 PATIENT LOCATION: [facility] bed 7. SUBJECTIVE: Ms. Bell had GI scope procedures with propofol for sedation. She did not become immediately alert. She had some movement, raising question of seizure. Her lack of appropriate communication has persisted. OBJECTIVE: On my exam, she has random roving conjugate eye movement. Thompson's phenomenon is not present. There is some definite voluntary resistance to passive eye lid opening. Pupils are round and react briskly to light. She had some eye movement typical of avoidance for the bright light. Facial motility is symmetric. Limb tone is normal and symmetric. There was some brisk withdrawal with stroking the sole of the foot bilaterally but that diminished with repeated sole stroking. Head and neck are unremarkable. There is no meningismus. DIAGNOSTIC STUDIES: EEG just after my exam is normal. There is no epileptiform discharge or other abnormality to suggest ongoing seizure. Lab work shows no significant recent metabolic findings. IMPRESSION AND PLAN: She is not having epileptic seizure. I have ordered levetiracetam and divalproex valproic acid levels for completeness. I do not think we need to make any changes to her current management. I do not have any new suggestion today. I would continue current seizure medicine until she can see Dr. Saldaña, her treating neurologist in [place]. Thanks for asking me to see Ms. Bell again. cc: Jamal Stack III, MD
[2017-01-02] MEDS: ATIVAN IV PRN (21:11)
[2017-01-03] MEDS: D10W 1,000 ML IV SCH ×2 (00:40→14:22)
[2017-01-03] MEDS: MORPHINE IV PRN ×3 (01:52→14:22)
[2017-01-03] MEDS: CARAFATE PO SCH ×3 (01:58→14:22)
--- NOTE | 2017-01-03 06:01 | OPERATIVE NOTE ---
PROCEDURE DATE: 01/02/2017 ATTENDING PHYSICIAN: Dr. Cox. PROCEDURE PERFORMED: Esophagogastroscopy with gastric biopsy and ileocolonoscopy. PREOPERATIVE DIAGNOSES: 1. Abdominal pain in the right side and diffuse, going on for many weeks. 2. Reflux disease. 3. Nausea. 4. Altered bowel habits. 5. Diabetes. 6. Seizures. 7. Unknown psychiatric illness. POSTOPERATIVE DIAGNOSES: 1. Normal esophagus. 2. Z-line at 37 cm. 3. Evidence of bile in the stomach, moderate amount, suctioned. 4. Normal fundus, cardia, incisura on retroflexion. 5. Evidence of erosive gastritis, biopsied. 6. Normal duodenal bulb and second portion. 7. Normal terminal ileum. 8. Stool throughout the colon, mostly on the right side, thick stool which was lavaged. 9. Torturous left colon. 10. Normal anal verge was noted. No evidence of any obstruction noted. 11. No evidence of any colitis noted. ESTIMATED BLOOD LOSS: None. COMPLICATIONS: None. ANESTHESIA: Monitored anesthesia care. SPECIMEN: Included gastric random biopsies sent to Surgical Pathology. DESCRIPTION OF PROCEDURE: After informed consent, the patient has been explained the risks, benefits, indications, and alternatives of the procedure. The patient prepared for EGD and colonoscopy. The patient was brought to the OR. She was turned in the left lateral position. A bite block was placed in the patient's mouth. After adequate monitored anesthesia care, the upper scope was gently introduced through the oral vestibule all the way to the second portion of the duodenum. Esophagus normal the entire length. Z-line was at 37 cm. The stomach showed evidence of a moderate amount of bile which was suctioned out. The stomach body and antrum mucosa showed erythema, erosions suggesting erosive gastritis. This was biopsied. Retroflexion revealed normal fundus, cardia, incisura. The duodenal bulb and second portion of the duodenum appeared normal. The air was withdrawn. The patient was turned around. Rectal exam was performed which revealed reduced rectal tone. No masses felt. No blood on examining finger. The colonoscope was introduced through the anal verge and advanced all the way to the terminal ileum. The terminal ileum appeared normal. No evidence of any colitis. Stool was noted throughout the colon, mostly on the right side. This was lavaged. Some tortuosity was noted in the left colon with some scar tissue. Normal anal verge and rectum. No evidence of any obstruction. No evidence of any colitis noted. No major hemorrhoids noted. The air was aspirated as the scope was withdrawn. The patient tolerated the procedure and is currently monitored in the OR in stable condition. RECOMMENDATIONS: 1. The patient will be on MiraLAX 17 g twice daily and she can increase to 3 times daily as needed. Hold for more than 3 Bms in 24 hours. 2. Patient will increase fiber intake 25-30 gm per 24 hours. 3. The patient will follow gastroesophageal reflux life changes. 4. The patient will be started on Carafate 1 g 6 hours for 1 month. The patient continue on Pepcid once or twice daily as needed. 5. Patient will drink plenty of fluids every day to help move her bowels. 6. Patient will follow with me in the clinic 1 month from discharge to review the biopsies. 7. Further recommendations to follow pending the results. cc: MD Yonny Munoz MD MTDD
[2017-01-03] MEDS: HUMULIN R SUBQ SCH ×3 (06:05→15:45)
[2017-01-03] MEDS: KEPPRA 1,000 MG in NS 100 ML IV SCH (06:12)
[2017-01-03] MEDS: MIRALAX PO SCH (08:44)
[2017-01-03] MEDS: ATIVAN PO SCH (08:45)
[2017-01-03] MEDS: DEPAKOTE PO SCH (08:45)
[2017-01-03] MEDS: EFFEXOR PO SCH (08:45)
[2017-01-03] MEDS: VITAMIN D PO SCH (08:45)
[2017-01-03] MEDS: PERICOLACE PO SCH (08:45)
[2017-01-03] MEDS: SYNTHROID PO SCH (08:45)
[2017-01-03] MEDS: PEPCID IV SCH (08:46)
[2017-01-03] MEDS ORDERED: KEPPRA PO SCH (09:00)
--- NOTE | 2017-01-03 09:09 | PROGRESS NOTE ---
DATE: 01/03/2017 SUBJECTIVE: Ms. Bell says she is feeling better. Her tummy feels a little better. She was asking about possible discharge. She has not gotten out of the bed, so we do probably need to walk her around. OBJECTIVE: Vital Signs: She remains afebrile. Temperature 97.7 degrees, pulse 66, respirations 20, blood pressure 114/62. The pupils are equal and round. CVP less than 6 cm. Lungs are clear in all lung emerson. Cardiovascular: Regular rhythm and rate without murmur or S3. Abdomen is soft. Skin is warm and dry. Urine output over 3 L. LABORATORY DATA: Blood sugar 105, 107, 104. Dr. Ruiz performed an EGD yesterday because of abdominal pain, reflux disease, nausea, altered bowel habits. She had normal esophagus. Z-line was at 37 cm. Evidence of bile in the stomach, a moderate amount but normal duodenal bulb, normal terminal ileum. ASSESSMENT AND PLAN: Not having any epileptic seizures. I have ordered levetiracetam and divalproex and valproic acid levels for completeness. She did not think we needed to make any changes in management. Following her EGD yesterday, I think there appeared to be some residual seizure activity witnessed by the anesthesiologist and, therefore, need to continue these medications. Her right-sided abdominal pain is better. She still has not had a bowel movement, so we will continue to treat constipation. Blood sugars appeared to be well controlled. We will get physical therapy to start walking her around. We will switch her levetiracetam to a 1000 mg twice a day p.o. and see how we do. cc: Meet Field MD
--- NOTE | 2017-01-03 11:47 | PROGRESS NOTE ---
DATE: 01/03/2017 Ms. Bell has not had any more episodes. She reports that she remembers "waking up" after her procedure yesterday and talking with the staff and then she had a sense that she was asleep and then there was a period of time when she could hear what was being said around her but she seemed unable to get herself to wake up and to speak. EEG was normal. There was no evidence of seizure. Clinically, she appeared to be awake and alert during that time frame. I discussed again with her my impression that these episodes are not epileptic seizures. The recent episodes did not occur in relation to extreme emotional distress but there may have been some anxiety. At any rate, she is recovered now. I do not have any new suggestion today. I would continue the current seizure medicine until she can follow up with Dr. Saldaña in [place]. Thanks for asking me to see Ms. Bell. cc: Jamal Stack III, MD
[2017-01-03 11:57] VITALS: BP 116/99
--- NOTE | 2017-01-03 13:32 | EEG REPORT ---
DATE: 01/02/2017 COMMENT: This is a digitally recorded EEG done in recovery room on a 26-year-old patient with question of seizure following GI procedure. FINDINGS: Much of the record is recorded in drowsing with a medium amplitude polymorphic theta prominent symmetrically across the hemispheres. Waking record shows poorly sustained 9-10 Hz posterior rhythm bilaterally with uncertain reactivity to eye opening. There is some frontal muscle contraction artifact which does not hinder interpretation. Activating procedures were not done. No epileptiform discharge was identified. INTERPRETATION: Normal EEG. CORRELATION: The absence of epileptiform discharges on a single EEG does not exclude a clinical diagnosis of seizure, but there is nothing on this record to suggest ongoing seizure as the reason for her continued poor responsiveness. cc: Jamal Stack III, MD
--- NOTE | 2017-01-03 16:26 | DISCHARGE SUMMARY ---
ADMISSION DATE: 12/27/2016 DISCHARGE DATE: 01/03/2017 HISTORY OF PRESENT ILLNESS: She has multiple medical problems for young age, including dysautonomia, diabetes mellitus type 2, hypothyroidism. Came in with recurrent dizziness. According to , she was having frequent episodes of just dizziness and nearly passing out. Reportedly she had been unresponsive. No seizure activity although she has a history of seizures for which she takes Depakote. She had noticed the symptoms had been worse, and placed on trazodone and Zyprexa for her severe depression. I think she recently lost a family member. She was at [facility] and then was sent to [place] for inpatient psychiatric treatment. At that point, she has been on Effexor and Depakote, which again reportedly for seizures, and placed on trazodone and Zyprexa, but it was her fiance who said that she was completely unresponsive so I am assuming that was not her but her fiance who was at the bedside earlier. Again no seizure activity, but she had episodes where she was unresponsive for 5 or 10 minutes. Never falling out. Never fell face-down, but she has had issues with that, and that is why she has been put in the hospital. Workup here was pretty unremarkable. PAST MEDICAL HISTORY: 1. Again, hypertension with orthostasis, and diagnosed with dysautonomia. 2. Seizure disorder. Questionable. 3. Hypothyroidism. 4. Diabetes mellitus type 2. SURGICAL HISTORY: None. So the question was whether it was presyncopal dizziness. She had an echocardiogram with Doppler done on 12/28/2016 and it was really unremarkable. Ejection fraction was 65%. Normal left ventricle function. No significant valvular dysfunction. She had an abdominal pelvic CT done on 12/28/2016 which showed some constipation but nothing else. She was complaining of right-sided abdominal pain. Doctor Seda was consulted on 12/29/2016. He felt a history of spells with features most consistent with nonepileptic etiology. I believe that was consistent with what was determined at [facility] based on report that she was discharged without the medications to control seizures. Because she had these episodes of lightheadedness, double vision, followed by trembling in the left hand, and then collapse, she had bitten her tongue a few times but not any point of bleeding. She has never had any serious injury associated with these episodes. Dr. Saldaña is her neurologist. She has been unable to follow up with him. Workup was unremarkable. We started her on some Keppra (levetiracetam), and because she had continuing abdominal pain, Dr. Corona saw her, he did not see any sign of surgical abdomen, did not see any evidence of appendicitis. Continued to have abdominal pain, had Dr. Ruiz evaluate, and she had some pain and some rectal bleeding in the setting of constipation, and he suspected this was probably some anorectal pathology from constipation. There is no family history of colon cancer. She had EGD performed by Dr. Ruiz, and it was really unremarkable. [place] the pain could be from constipation and was given some cathartics which seemed to help, and she wanted to go home on 01/03/2017. So we did ambulate her and took out her Wolf catheter. DISCHARGE MEDICATIONS: We will keep her on the Keppra 1000 mg twice a day, Synthroid 150 mcg daily, Ativan 0.5 mg b.i.d., MiraLAX 17 g p.o. b.i.d., Mracela-Colace 2 p.o. b.i.d., Carafate 1 g p.o. q.6 hours for another 4 weeks and then stop, Desyrel 150 mg p.o. at bedtime, Effexor 75 mg a day. FOLLOWUP: She will follow up with her neurologist and primary care. cc: Meet Field MD
== END 2017-01-03 17:35 | disposition home or self-care (01) ==
LOC: ED 19:27 → 3N 19:27 → OBSVTOIN 23:59 → SUATTDRO 23:59 → 3S 12-28 18:12
PROVIDERS: ATTEND Emergency Medicine